=== PATIENT | male | born 1930 | race African-American/Black ===

== ENCOUNTER 2016-12-24 17:19 | Emergency (ER) | payer OTHER ==
[~2016-12-24] VITALS: Ht 175.3 cm; Wt 76.0 kg
[2016-12-24] MEDS ORDERED: SODIUM CHLORIDE 0.9% 500 ML IV ONE (17:29)
[2016-12-24 18:09] LABS: BASOPHILS % 1.1 % (0.0-2.0); EOSINOPHILS % 1.2 % (0.0-5.0); MEAN CORPUSCULAR HEMOGLOBIN 26.8 pg (28.0-32.0); MEAN CORPUSCULAR HGB CONC 33.5 g/dL (31.0-37.0); MEAN PLATELET VOLUME 7.2 fl (7.4-10.4); MONOCYTES % 7.2 % (2.0-8.0); NEUTROPHILS % 60.5 % (40.0-76.0); PLATELET 276 x1000/uL (130-400); RED BLOOD CELL COUNT 4.62 mill/uL (4.7-6.1); RED CELL DISTRIBUTION WIDTH 13.5 % (11.6-14.6); WHITE BLOOD COUNT 7.3 x1000/uL (4.5-11.0)
[2016-12-24 18:14] LABS: PROTHROMBIN TIME 10.3 sec
[2016-12-24 18:16] LABS: CHLORIDE 102 mEq/L (98-107); INDEX HEMOLYSI 1 (1-3); INDEX ICTERIC 1 (1-4); INDEX LIPEMIC 1 (1-3)
[2016-12-24 18:24] LABS: HEMOGLOBIN. 12.4 g/dL (14.0-18.0)
[2016-12-24 18:27] LABS: ALANINE AMINOTRANSFERASE 41 IU/L (13-61); ALBUMIN 3.9 g/dL (3.4-5.0); ANION GAP 8; CALCIUM 8.8 mg/dL (8.5-10.1); CARBON DIOXIDE 32 mEq/L (21-32); CREATINE KINASE 78 IU/L (39-308); ETHANOL BLOOD < 10 mg/dL; NT PRO B-TYPE NATRIURETIC PEP 75 pg/mL (5-125); PHENYTOIN 3.4 ug/mL (10-20); UREA NITROGEN BLOOD 12 mg/dL (7-21); eGFR > 60 mL/min (>60)
[2016-12-24 18:33] LABS: CARBAMAZEPINE < 0.5 ug/mL (4-12); PHENOBARBITAL < 2.1 ug/mL (15.0-40.0); VALPROIC ACID < 3.0 ug/mL (50-100)
[2016-12-24] MEDS ORDERED: PHENYTOIN SODIUM 500 MG in SODIUM CHLORIDE 0.9% 50 ML IV ONE (19:00)
[2016-12-24 20:43] LABS: CLARITY URINE CLEAR (CLEAR); COLOR URINE YELLOW (YELLOW); GLUCOSE URINE NEGATIVE (NEGATIVE); KETONES URINE NEGATIVE (NEGATIVE); LEUKOCYTE ESTERASE URINE NEGATIVE (NEGATIVE); NITRITE URINE NEGATIVE (NEGATIVE); OCCULT BLOOD URINE NEGATIVE (NEGATIVE); PROTEIN URINE NEGATIVE (NEGATIVE); SPECIFIC GRAVITY URINE 1.022 (1.005-1.030)
[2016-12-24 21:13] LABS: *AMPHETAMINES SCREEN URINE NEGATIVE (NEGATIVE); *BARBITURATES SCREEN URINE NEGATIVE (NEGATIVE); *BENZODIAZEPINES SCREEN URINE NEGATIVE (NEGATIVE); *COCAINE SCREEN URINE NEGATIVE (NEGATIVE); CANNABINOID URINE SCREEN NEGATIVE (NEGATIVE); ECSTASY MDMA SCREEN URINE NEGATIVE (NEGATIVE); METHADONE URINE SCREEN NEGATIVE (NEGATIVE); OPIATES URINE SCREEN NEGATIVE (NEGATIVE); PHENCYCLIDINE URINE SCREEN NEGATIVE (NEGATIVE)
[2016-12-24 22:00] VITALS: BP 126/43
== END 2016-12-24 23:10 | disposition short-term general hospital (02) ==
LOC: ER 17:20
DX: F48.8 Other specified nonpsychotic mental disorders (principal); R55 Syncope and collapse; I49.5 Sick sinus syndrome; R79.89 Other specified abnormal findings of blood chemistry; F03.90 Unspecified dementia, unspecified severity, without behavioral disturbance, psychotic disturbance, mood disturbance, and anxiety
CPT/HCPCS: 36415; 51702; 70450; 71010; 80053; 80156; 80165; 80184; 80185; 80305; 81003; 82550; 83880; 84443; 85025; 85610; 93005; 96365; 96366; 99285; G0482; J1165; J7030; J7040; A4315

== ENCOUNTER 2017-04-16 15:59 | Inpatient (IN) | payer OTHER ==
[~2017-04-16] VITALS: Ht 180.3 cm; Wt 76.2 kg
[2017-04-16] MEDS ORDERED: SODIUM CHLORIDE 0.9% 1000ML BAG (SEPSIS BOLUS) IV ONE (17:15)
[2017-04-16 18:11] LABS: BASOPHILS % 0.5 % (0.0-2.0); EOSINOPHILS % 0.6 % (0.0-5.0); HEMATOCRIT. 35.2 % (42.0-52.0); HEMOGLOBIN. 11.7 g/dL (14.0-18.0); LYMPHOCYTES % 18.5 % (20.0-50.0); MEAN CORPUSCULAR HEMOGLOBIN 27.2 pg (28.0-32.0); MEAN PLATELET VOLUME 7.4 fl (7.4-10.4); MONOCYTES % 8.3 % (2.0-8.0); NEUTROPHILS % 72.1 % (40.0-76.0); PLATELET 363 x1000/uL (130-400); RED BLOOD CELL COUNT 4.29 mill/uL (4.7-6.1); RED CELL DISTRIBUTION WIDTH 15.2 % (11.6-14.6)
[2017-04-16 18:14] LABS: PROTHROMBIN TIME 10.6 sec (9.4-11.6)
[2017-04-16 18:14] LABS: CLARITY URINE CLOUDY (CLEAR); COLOR URINE YELLOW (YELLOW); GLUCOSE URINE NEGATIVE (NEGATIVE); KETONES URINE NEGATIVE (NEGATIVE); LEUKOCYTE ESTERASE URINE NEGATIVE (NEGATIVE); NITRITE URINE NEGATIVE (NEGATIVE); OCCULT BLOOD URINE NEGATIVE (NEGATIVE); PH URINE 7.5 (4.5-8.0); PROTEIN URINE TRACE (NEGATIVE); SPECIFIC GRAVITY URINE 1.023 (1.005-1.030)
[2017-04-16 18:24] LABS: CARBON DIOXIDE 31 mEq/L (21-32); CHLORIDE 102 mEq/L (98-107)
[2017-04-16 18:36] LABS: TROPONIN I 0.42 ng/mL (0.00-0.04)
[2017-04-16] MEDS ORDERED: ASPIRIN 325MG TABLET PO ONE (20:00)
[2017-04-16] MEDS ORDERED: HYDROCODONE/ACETAMINOPHEN 5/325MG TABLET PO PRN (21:45)
[2017-04-16] MEDS ORDERED: ONDANSETRON HCL 4MG/2ML VIAL IV PRN (21:45)
[2017-04-16] MEDS ORDERED: ACETAMINOPHEN 325MG TABLET PO PRN (21:45)
[2017-04-16] MEDS ORDERED: CLONIDINE 0.1MG TABLET PO PRN (21:45)
[2017-04-16] MEDS ORDERED: IPRATROPIUM/ALBUTEROL 0.5-3(2.5)MG/3ML NEB INH PRN (21:45)
[2017-04-16 22:00] VITALS: BP 133/64
[2017-04-16 22:45] VITALS: BP 133/64
[2017-04-17] VITALS: BP 141/60
[2017-04-17 00:05] LABS: CREATINE KINASE MB FRACTION 6.9 ng/mL (0.5-3.6)
[2017-04-17 00:10] LABS: TROPONIN I 0.42 ng/mL (0.00-0.04)
[2017-04-17] MEDS ORDERED: LEVOFLOXACIN 500MG PREMIX 100 ML IV SCH (02:00)
[2017-04-17 04:00] VITALS: BP 124/61
[2017-04-17 08:00] VITALS: BP 121/69
[2017-04-17 08:27] LABS: CREATINE KINASE MB FRACTION 4.3 ng/mL (0.5-3.6)
[2017-04-17 08:33] LABS: TROPONIN I 0.4 ng/mL (0.00-0.04)
[2017-04-17] MEDS ORDERED: FOLIC ACID 1MG TABLET PO SCH (09:00)
[2017-04-17] MEDS ORDERED: ASPIRIN 81MG EC TABLET PO SCH (09:00)
[2017-04-17] MEDS ORDERED: FERROUS SULFATE 325MG TABLET PO SCH (09:00)
[2017-04-17] MEDS ORDERED: SODIUM CHLORIDE 0.9% 1,000 ML IV SCH (09:45)
[2017-04-17 09:56] LABS: *AMPHETAMINES SCREEN URINE NEGATIVE (NEGATIVE); *BARBITURATES SCREEN URINE NEGATIVE (NEGATIVE); *BENZODIAZEPINES SCREEN URINE NEGATIVE (NEGATIVE); *COCAINE SCREEN URINE NEGATIVE (NEGATIVE); CANNABINOID URINE SCREEN NEGATIVE (NEGATIVE); METHADONE URINE SCREEN NEGATIVE (NEGATIVE); OPIATES URINE SCREEN NEGATIVE (NEGATIVE); PHENCYCLIDINE URINE SCREEN NEGATIVE (NEGATIVE)
[2017-04-17] MEDS ORDERED: CEFTRIAXONE 1 G PREMIX 50 ML IV SCH (11:00)
[2017-04-17 12:00] VITALS: BP 125/70
[2017-04-17 16:00] VITALS: BP 142/68
[2017-04-17 17:48] VITALS: BP 125/70
== END 2017-04-17 19:44 | disposition short-term general hospital (02) | DRG 689 ==
LOC: ER 17:43 → 8WST 20:45 → EDBEDREQ 20:51 → EDBEDREQSVC 20:51 → EDBEDREQTM 20:51 → ENRESERV 21:06 → SUPCPDRO 21:42
PROVIDERS: ADMIT Internal Medicine Nephrology; ATTEND Internal Medicine Nephrology
DX: N39.0 Urinary tract infection, site not specified (principal); G93.40 Encephalopathy, unspecified; L89.91 Pressure ulcer of unspecified site, stage 1; F03.90 Unspecified dementia, unspecified severity, without behavioral disturbance, psychotic disturbance, mood disturbance, and anxiety; Z93.1 Gastrostomy status; E86.0 Dehydration; Z74.01 Bed confinement status; Z88.0 Allergy status to penicillin; Z88.8 Allergy status to other drugs, medicaments and biological substances
CPT/HCPCS: 36415; 51702; 70450; 71010; 80053; 80185; 80305; 81001; 82550; 82553; 83605; 84443; 84484; 85025; 85610; 87040; 87086; 93005; 93306; 96361; 96365; 97162; 99291; J0696; J1956; J7030; J7050